=== PATIENT | female | born 1990 | race Hispanic/Latino ===

== ENCOUNTER 2021-09-10 17:03 | Emergency (ER) | payer OTHER ==
[~2021-09-10] VITALS: Ht 147.3 cm; Wt 49.9 kg
[2021-09-10] MEDS ORDERED: 0.9%NACL 1000ML 1,000 ML IV ONE ×3 (17:30→17:37)
[2021-09-10] MEDS ORDERED: FAMOTIDINE 20MG VIAL IV ONE ×2 (17:30→17:37)
[2021-09-10] MEDS ORDERED: ONDANSETRON 4MG INJ IVP ONE (17:30)
[2021-09-10] MEDS ORDERED: ONDANSETRON 4MG INJ ONE (17:37)
[2021-09-10 17:40] LABS: BASOPHILS % (AUTO) 0.6 % (0.0-5.0); EOSINOPHILS % (AUTO) 0.6 % (0.0-8.0); HEMATOCRIT 34.6 % (36-48); MEAN CORPUSCULAR HGB CONC 32.4 g/dL (32.0-36.0); MEAN CORPUSCULAR VOLUME 80.3 fL (79-99); MONOCYTES % (AUTO) 4.3 % (3.0-13.0); NEUTROPHILS % (AUTO) 69.2 % (40.0-77.0); PLATELET COUNT (AUTO) 262 K/uL (130-400); RED BLOOD CELL COUNT(AUTO) 4.31 MIL/uL (4.00-5.50); RED CELL DISTRIBUTION WIDTH 12.6 % (11.0-15.5); WHITE BLOOD COUNT (AUTO) 11.7 K/uL (4.8-10.8)
[2021-09-10 17:42] LABS: APPEARANCE,URINE Cloudy (CLEAR); BILIRUBIN,URINE Negative (NEGATIVE); COLOR,URINE Yellow (YELLOW); GLUCOSE, URINE (UA) >=1000 mg/dL (NEGATIVE); KETONES,URINE >=160 mg/dL (NEGATIVE); LEUKOCYTE ESTERASE ,URINE Trace (NEGATIVE); NITRATE,URINE Negative (NEGATIVE); OCCULT BLOOD,URINE Moderate (NEGATIVE); PH,URINE 5.5 (5.0-8.0); PROTEIN,URINE POS 2+ mg/dL (NEGATIVE)
[2021-09-10 17:44] LABS: HCG,QUAL RESULT NEGATIVE (NEGATIVE)
[2021-09-10 17:48] LABS: BACTERIA,URINE Many /HPF (None Seen); MUCUS,URINE Few LPF (None Seen); SQUAMOUS EPITHELIAL CELL,UR Few /HPF (0-2)
[2021-09-10 17:51] LABS: CREATININE 0.5 mg/dL (0.5-1.5); POTASSIUM 3.4 mmol/L (3.5-5.1)
[2021-09-10 17:56] LABS: ALBUMIN 3.2 g/dL (3.5-5.0); TOTAL PROTEIN, SERUM 8.3 g/dL (6.0-8.3)
[2021-09-10] MEDS ORDERED: CEFTRIAXONE 1G VIAL IV ONE (18:00)
[2021-09-10] MEDS ORDERED: CEFTRIAXONE 1G VIAL ONE (18:14)
[2021-09-10] MEDS ORDERED: ONDA4TAB10 PO (18:18)
[2021-09-10] MEDS ORDERED: CEPH500B PO (18:18)
[2021-09-10 18:40] VITALS: BP 132/84
[2021-09-11] MEDS ORDERED: NAPR220T57 PO (17:42)
== END 2021-09-10 18:42 | disposition home or self-care (01) ==
LOC: EDH 17:03
DX: N39.0 Urinary tract infection, site not specified (principal); E11.9 Type 2 diabetes mellitus without complications; Z79.899 Other long term (current) drug therapy; Z88.0 Allergy status to penicillin
CPT/HCPCS: 36415; 80053; 81001; 81025; 85025; 87077; 87088; 87186; 96361; 96374; 96375; 99284; J0696; J2405; J3490; J7030

== ENCOUNTER 2021-09-11 17:01 | Emergency (ER) | payer OTHER ==
[~2021-09-11] VITALS: Ht 147.3 cm; Wt 49.4 kg
[~2021-09-11 17:01] MED LIST: CEPH500B PO; ONDA4TAB10 PO
[2021-09-11] MEDS ORDERED: NAPR220T57 PO (17:42)
[2021-09-11] MEDS ORDERED: KETOROLAC 30MG VIAL (30MG/ML) ONE (17:47)
[2021-09-11] MEDS ORDERED: DIAZEPAM 5 MG TABLET ONE (17:47)
[2021-09-11 17:54] VITALS: BP 118/68
[2021-09-11] MEDS ORDERED: KETOROLAC 30MG VIAL (30MG/ML) IM ONE (18:00)
[2021-09-11] MEDS ORDERED: DIAZEPAM 5 MG TABLET PO ONE (18:00)
== END 2021-09-11 17:56 | disposition home or self-care (01) ==
LOC: EDH 17:01
DX: G89.29 Other chronic pain (principal); M54.50 Low back pain, unspecified; E11.9 Type 2 diabetes mellitus without complications; Z88.0 Allergy status to penicillin; Z79.1 Long term (current) use of non-steroidal anti-inflammatories (NSAID); Z79.899 Other long term (current) drug therapy
CPT/HCPCS: 96372; 99283; J1885

== ENCOUNTER 2021-09-17 06:50 | Emergency (ER) | payer SELFPAY ==
[~2021-09-17] VITALS: Ht 147.3 cm; Wt 40.4 kg
[~2021-09-17 06:50] MED LIST changes: +NAPR220T57 PO
[2021-09-17] MEDS ORDERED: KETOROLAC 30MG VIAL (30MG/ML) IVP ONE (07:30)
[2021-09-17] MEDS ORDERED: ONDANSETRON 4MG INJ IVP ONE (07:30)
[2021-09-17] MEDS ORDERED: 0.9%NACL 1000ML 1,000 ML IV ONE ×2 (07:30→07:38)
[2021-09-17] MEDS ORDERED: ONDANSETRON 4MG INJ ONE (07:38)
[2021-09-17] MEDS ORDERED: KETOROLAC 30MG VIAL (30MG/ML) ONE (07:38)
[2021-09-17 07:46] LABS: BASOPHILS % (AUTO) 0.6 % (0.0-5.0); EOSINOPHILS % (AUTO) 0.3 % (0.0-8.0); HEMATOCRIT 35.4 % (36-48); LYMPHOCYTES % (AUTO) 20.6 % (21.0-51.0); MEAN CORPUSCULAR HEMOGLOBIN 26.8 pg (27.0-33.0); MEAN CORPUSCULAR HGB CONC 33.9 g/dL (32.0-36.0); MEAN CORPUSCULAR VOLUME 79.2 fL (79-99); MONOCYTES % (AUTO) 4.5 % (3.0-13.0); NEUTROPHILS % (AUTO) 73.7 % (40.0-77.0); PLATELET COUNT (AUTO) 253 K/uL (130-400); RED BLOOD CELL COUNT(AUTO) 4.47 MIL/uL (4.00-5.50); RED CELL DISTRIBUTION WIDTH 12.9 % (11.0-15.5); WHITE BLOOD COUNT (AUTO) 7.8 K/uL (4.8-10.8)
[2021-09-17 08:09] LABS: APPEARANCE,URINE Clear (CLEAR); BILIRUBIN,URINE Negative (NEGATIVE); COLOR,URINE Yellow (YELLOW); GLUCOSE, URINE (UA) >=1000 mg/dL (NEGATIVE); KETONES,URINE >=160 mg/dL (NEGATIVE); LEUKOCYTE ESTERASE ,URINE Small (NEGATIVE); NITRATE,URINE Negative (NEGATIVE); OCCULT BLOOD,URINE Trace (NEGATIVE); PROTEIN,URINE POS 1+ mg/dL (NEGATIVE)
[2021-09-17 08:15] LABS: HCG,QUAL RESULT NEGATIVE (NEGATIVE)
[2021-09-17 08:23] LABS: BACTERIA,URINE Few /HPF (None Seen); RBC,URINE 0-1 /HPF (0-1)
[2021-09-17 09:15] LABS: CREATININE 0.6 mg/dL (0.5-1.5); POTASSIUM 3.1 mmol/L (3.5-5.1)
[2021-09-17 09:20] LABS: ALBUMIN 3.4 g/dL (3.5-5.0); BILIRUBIN,TOTAL 1.1 mg/dL (0.2-1.0); TOTAL PROTEIN, SERUM 8.1 g/dL (6.0-8.3)
[2021-09-17] MEDS ORDERED: POTASSIUM CHLORIDE 10% ELIXIR 20 MEQ/15 ML UDCUP PO SCH (11:00)
[2021-09-17] MEDS ORDERED: ACET-2079 PO (11:29)
[2021-09-17] MEDS ORDERED: KCL 20 MEQ ERTAB PO ONE ×2 (11:30→11:34)
[2021-09-17 11:51] VITALS: BP 141/81
== END 2021-09-17 11:56 | disposition home or self-care (01) ==
LOC: EDH 06:50
DX: K80.70 Calculus of gallbladder and bile duct without cholecystitis without obstruction (principal); E87.6 Hypokalemia; E11.9 Type 2 diabetes mellitus without complications; Z79.1 Long term (current) use of non-steroidal anti-inflammatories (NSAID); Z79.899 Other long term (current) drug therapy; Z88.0 Allergy status to penicillin
CPT/HCPCS: 36415; 74176; 76705; 80053; 81001; 81025; 83605; 83690; 85025; 87040 ×2; 96361; 96374; 96375; 99285; J1885; J2405; J7030

== ENCOUNTER 2022-02-15 07:35 | Emergency (ER) | payer OTHER ==
[~2022-02-15] VITALS: Ht 147.3 cm; Wt 40.8 kg
[~2022-02-15 07:35] MED LIST changes: +ACET-2079 PO
[2022-02-15] MEDS ORDERED: ONDANSETRON 4MG INJ IV ONE (08:00)
[2022-02-15] MEDS ORDERED: 0.9%NACL 1000ML 1,000 ML IV SCH (08:00)
[2022-02-15 08:02] LABS: MEAN CORPUSCULAR HGB CONC 33.5 g/dL (32.0-36.0); MEAN CORPUSCULAR VOLUME 80.4 fL (79-99); RED BLOOD CELL COUNT(AUTO) 4.6 MIL/uL (4.00-5.50); RED CELL DISTRIBUTION WIDTH 13.1 % (11.0-15.5); WHITE BLOOD COUNT (AUTO) 9.7 K/uL (4.8-10.8)
[2022-02-15 08:10] LABS: APPEARANCE,URINE CLEAR (CLEAR); BILIRUBIN,URINE NEGATIVE (NEGATIVE); COLOR,URINE YELLOW (YELLOW); GLUCOSE, URINE (UA) >=1000 mg/dL (NEGATIVE); KETONES,URINE >=80 mg/dL (NEGATIVE); LEUKOCYTE ESTERASE ,URINE NEGATIVE (NEGATIVE); NITRATE,URINE NEGATIVE (NEGATIVE); OCCULT BLOOD,URINE SMALL (NEGATIVE); PROTEIN,URINE 30 mg/dL (NEGATIVE); UROBILINOGEN,URINE 0.2 mg/dL (0.2-1.0)
[2022-02-15 08:24] LABS: CREATININE 1.1 mg/dL (0.5-1.5); POTASSIUM 3.6 mmol/L (3.5-5.1); TOTAL PROTEIN, SERUM 8.8 g/dL (6.0-8.3)
[2022-02-15 08:25] LABS: BACTERIA,URINE Few /HPF (None Seen); RBC,URINE 0-1 /HPF (0-1); SQUAMOUS EPITHELIAL CELL,UR 0-2 /HPF (0-2); WBC,URINE 0-1 /HPF (0-1)
[2022-02-15 08:29] LABS: HCG,QUALITATIVE URINE NEGATIVE (NEGATIVE)
[2022-02-15] MEDS ORDERED: INSULIN HUMULIN R 100 UNIT/ML 3ML IV ONE (09:00)
[2022-02-15] MEDS ORDERED: ESOM40CA PO (09:21)
[2022-02-15] MEDS ORDERED: ONDA4TAB10 PO (09:21)
[2022-02-15] MEDS ORDERED: PROMETHAZINE HCL 25 MG/ML 1ML AMPULE IM ONE (10:00)
[2022-02-15 10:02] VITALS: BP 132/74
[2022-02-16] MEDS ORDERED: ONDA4TAB10 PO (12:14)
[2022-02-16] MEDS ORDERED: IBUP-2070 PO (12:14)
[2022-02-16] MEDS ORDERED: FAMO-136 PO (12:14)
[2022-02-17] MEDS ORDERED: OXYC-38 PO (01:11)
== END 2022-02-15 10:04 | disposition home or self-care (01) ==
LOC: EDH 07:35
DX: E11.65 Type 2 diabetes mellitus with hyperglycemia (principal); K29.00 Acute gastritis without bleeding; Z91.14 Patient's other noncompliance with medication regimen; Z20.822 Contact with and (suspected) exposure to COVID-19; Z88.0 Allergy status to penicillin; Z79.899 Other long term (current) drug therapy; Z98.890 Other specified postprocedural states
CPT/HCPCS: 99284; 96374; 87635; 96361; 96375; 80053; 85027; 82948; 81001; 81025; 36415; 96372; J1815; C9803; J7030; J2550; J2405

== ENCOUNTER 2022-02-16 08:15 | Emergency (ER) | payer OTHER ==
[~2022-02-16] VITALS: Ht 147.3 cm; Wt 40.8 kg
[~2022-02-16 08:15] MED LIST changes: +ESOM40CA PO
[2022-02-16] MEDS ORDERED: ONDANSETRON 4MG INJ ONE (09:16)
[2022-02-16] MEDS ORDERED: HYDROMORPHONE 0.5 MG SYG (0.5MG/0.5ML) ONE (09:17)
[2022-02-16 09:22] LABS: APPEARANCE,URINE CLEAR (CLEAR); BILIRUBIN,URINE NEGATIVE (NEGATIVE); COLOR,URINE YELLOW (YELLOW); GLUCOSE, URINE (UA) 500 mg/dL (NEGATIVE); KETONES,URINE >=80 mg/dL (NEGATIVE); LEUKOCYTE ESTERASE ,URINE NEGATIVE (NEGATIVE); NITRATE,URINE NEGATIVE (NEGATIVE); OCCULT BLOOD,URINE SMALL (NEGATIVE); PROTEIN,URINE TRACE mg/dL (NEGATIVE)
[2022-02-16 09:24] LABS: EOSINOPHILS % (AUTO) 0.6 % (0.0-8.0); HEMATOCRIT 38.9 % (36-48); LYMPHOCYTES % (AUTO) 25.3 % (21.0-51.0); MEAN CORPUSCULAR HEMOGLOBIN 26.8 pg (27.0-33.0); MEAN CORPUSCULAR HGB CONC 32.6 g/dL (32.0-36.0); MEAN CORPUSCULAR VOLUME 82.1 fL (79-99); MONOCYTES % (AUTO) 5.4 % (3.0-13.0); NEUTROPHILS % (AUTO) 67.5 % (40.0-77.0); PLATELET COUNT (AUTO) 229 K/uL (130-400); RED BLOOD CELL COUNT(AUTO) 4.74 MIL/uL (4.00-5.50); RED CELL DISTRIBUTION WIDTH 12.9 % (11.0-15.5); WHITE BLOOD COUNT (AUTO) 8.6 K/uL (4.8-10.8)
[2022-02-16] MEDS ORDERED: LACTATED RINGERS 1000ML 1,000 ML IV ONE (09:30)
[2022-02-16] MEDS ORDERED: ONDANSETRON 4MG INJ IVP ONE (09:30)
[2022-02-16] MEDS ORDERED: HYDROMORPHONE 0.5 MG SYG (0.5MG/0.5ML) IVP ONE (09:30)
[2022-02-16 09:39] LABS: CREATININE 0.8 mg/dL (0.5-1.5); POTASSIUM 3.1 mmol/L (3.5-5.1)
[2022-02-16 09:43] LABS: ALBUMIN 3.8 g/dL (3.5-5.0); TOTAL PROTEIN, SERUM 8.3 g/dL (6.0-8.3)
[2022-02-16 10:11] LABS: BACTERIA,URINE Rare /HPF (None Seen); MUCUS,URINE Few LPF (None Seen); RBC,URINE 0-1 /HPF (0-1); SQUAMOUS EPITHELIAL CELL,UR Rare /HPF (0-2); WBC,URINE 0-1 /HPF (0-1)
[2022-02-16] MEDS ORDERED: KETOROLAC 30MG VIAL (30MG/ML) IVP ONE (10:30)
[2022-02-16] MEDS ORDERED: KCL 20 MEQ ERTAB PO ONE (10:30)
[2022-02-16] MEDS ORDERED: ONDA4TAB10 PO (12:14)
[2022-02-16] MEDS ORDERED: FAMO-136 PO (12:14)
[2022-02-16] MEDS ORDERED: IBUP-2070 PO (12:14)
[2022-02-16 13:01] VITALS: BP 118/78
[2022-02-17] MEDS ORDERED: OXYC-38 PO (01:11)
[2022-02-19] MEDS ORDERED: MACR100 PO (20:08)
== END 2022-02-16 13:12 | disposition home or self-care (01) ==
LOC: EDH 08:15
DX: K80.70 Calculus of gallbladder and bile duct without cholecystitis without obstruction (principal); E11.65 Type 2 diabetes mellitus with hyperglycemia; E87.6 Hypokalemia; I10 Essential (primary) hypertension; F17.200 Nicotine dependence, unspecified, uncomplicated; Z88.0 Allergy status to penicillin; Z79.899 Other long term (current) drug therapy
CPT/HCPCS: 99284; 96374; 76705; 96361; 96375; 82150; 80053; 83690; 85025; 81001; 81025; 36415; J7120; J2405; J1170

== ENCOUNTER 2023-03-14 11:22 | Emergency (ER) | payer BC, OTHER ==
[~2023-03-14] VITALS: Ht 147.3 cm; Wt 40.8 kg
[~2023-03-14 11:22] MED LIST changes: -ACET-2079 PO; -CEPH500B PO; +IBUP-2070 PO; +MACR100 PO; -NAPR220T57 PO; +OXYC-38 PO
[2023-03-14 11:58] LABS: BASOPHILS # (AUTO) 0.06 K/uL (0.00-0.20); BASOPHILS % (AUTO) 0.7 % (0.0-5.0); EOSINOPHILS # (AUTO) 0.06 K/uL (0.00-0.70); EOSINOPHILS % (AUTO) 0.7 % (0.0-8.0); HEMATOCRIT 37.9 % (36-48); IMMATURE GRANULOCYTE ABSOLUTE 0.03 K/uL (0-1); LYMPHOCYTES # (AUTO) 1.4 K/uL (1.0-4.8); MEAN CORPUSCULAR HGB CONC 32.5 g/dL (32.0-36.0); MEAN CORPUSCULAR VOLUME 83.1 fL (79-99); MONOCYTES # (AUTO) 0.5 K/uL (0.1-1.0); MONOCYTES % (AUTO) 4.9 % (3.0-13.0); NEUTROPHILS # (AUTO) 7.3 K/uL (1.8-7.7); NEUTROPHILS % (AUTO) 78.4 % (40.0-77.0); PLATELET COUNT (AUTO) 213 K/uL (130-400); RED BLOOD CELL COUNT(AUTO) 4.56 MIL/uL (4.00-5.50); RED CELL DISTRIBUTION WIDTH 12.9 % (11.0-15.5); WHITE BLOOD COUNT (AUTO) 9.2 K/uL (4.8-10.8)
[2023-03-14 12:06] LABS: HCG,QUALITATIVE URINE NEGATIVE (NEGATIVE)
[2023-03-14 12:08] LABS: CREATININE 0.9 mg/dL (0.5-1.5); POTASSIUM 3.6 mmol/L (3.5-5.1)
[2023-03-14 12:14] LABS: APPEARANCE,URINE CLOUDY (CLEAR); BILIRUBIN,URINE NEGATIVE (NEGATIVE); COLOR,URINE YELLOW (YELLOW); GLUCOSE, URINE (UA) >=1000 mg/dL (NEGATIVE); KETONES,URINE 40 mg/dL (NEGATIVE); LEUKOCYTE ESTERASE ,URINE NEGATIVE Leu/uL (NEGATIVE); NITRATE,URINE NEGATIVE (NEGATIVE); OCCULT BLOOD,URINE LARGE (NEGATIVE); PH,URINE 5.5 (5.0-8.0); PROTEIN,URINE 100 mg/dL (NEGATIVE); UROBILINOGEN,URINE 0.2 mg/dL (0.2-1.0)
[2023-03-14 12:15] LABS: ADD UA MICROSCOPIC YES
[2023-03-14 12:15] LABS: ALBUMIN 3.7 g/dL (3.5-5.0); BILIRUBIN,TOTAL 1.2 mg/dL (0.2-1.0); TOTAL PROTEIN, SERUM 8.2 g/dL (6.0-8.3)
[2023-03-14 12:19] LABS: MUCUS,URINE RARE LPF (None Seen); OTHER CASTS, URINE 1 /LPF (None Seen); RBC,URINE 26-50 /HPF (0-1); SQUAMOUS EPITHELIAL CELL,UR MOD /HPF (0-2)
[2023-03-14] MEDS ORDERED: ONDANSETRON 4MG INJ IVP ONE (13:00)
[2023-03-14] MEDS ORDERED: INSULIN HUMULIN R 100 UNIT/ML 3ML IV ONE (13:00)
[2023-03-14] MEDS ORDERED: LACTATED RINGERS 1000ML 1,000 ML IV ONE (13:00)
[2023-03-14 13:10] LABS: AMPHET/METH SCREEN,URINE NEGATIVE (NEGATIVE); BARBITURATE SCREEN, URINE NEGATIVE (NEGATIVE); BENZODIAZEPINES SCREEN,URINE NEGATIVE (NEGATIVE); CANNABINOID SCREEN,URINE POSITIVE (NEGATIVE); COCAINE SCREEN,URINE NEGATIVE (NEGATIVE); OPIATE SCREEN,URINE NEGATIVE (NEGATIVE); PHENCYCLIDINE SCREEN,URINE NEGATIVE (NEGATIVE)
[2023-03-14] MEDS ORDERED: METO5 PO (14:50)
[2023-03-14 15:02] VITALS: BP 112/77; PULSE 87; RESP 16; O2SAT 98
[2023-03-15] MEDS ORDERED: METO10TA41 PO (16:06)
== END 2023-03-14 15:07 | disposition home or self-care (01) ==
LOC: EDH 11:22
DX: E11.43 Type 2 diabetes mellitus with diabetic autonomic (poly)neuropathy (principal); E11.65 Type 2 diabetes mellitus with hyperglycemia; K31.84 Gastroparesis; F12.10 Cannabis abuse, uncomplicated; R11.2 Nausea with vomiting, unspecified; Z79.899 Other long term (current) drug therapy; Z98.890 Other specified postprocedural states; Z88.0 Allergy status to penicillin
CPT/HCPCS: 99284; 96374; 96361; 96375; 82150; 80053; 80305; 83690; 85025; 82948 ×2; 81025; 36415; 81001; J1815; J7120; J2405

== ENCOUNTER 2023-03-15 11:42 | Emergency (ER) | payer BC ==
[~2023-03-15] VITALS: Ht 147.3 cm; Wt 40.8 kg
[~2023-03-15 11:42] MED LIST changes: +METO5 PO
[2023-03-15 12:59] LABS: BASOPHILS # (AUTO) 0.05 K/uL (0.00-0.20); BASOPHILS % (AUTO) 0.6 % (0.0-5.0); HEMATOCRIT 35.8 % (36-48); IMMATURE GRANULOCYTE ABSOLUTE 0.04 K/uL (0-1); LYMPHOCYTES # (AUTO) 1.6 K/uL (1.0-4.8); LYMPHOCYTES % (AUTO) 19.1 % (21.0-51.0); MEAN CORPUSCULAR HGB CONC 33.2 g/dL (32.0-36.0); MEAN CORPUSCULAR VOLUME 81.2 fL (79-99); MONOCYTES # (AUTO) 0.6 K/uL (0.1-1.0); MONOCYTES % (AUTO) 7.1 % (3.0-13.0); NEUTROPHILS # (AUTO) 6.2 K/uL (1.8-7.7); NEUTROPHILS % (AUTO) 72.7 % (40.0-77.0); PLATELET COUNT (AUTO) 225 K/uL (130-400); RED BLOOD CELL COUNT(AUTO) 4.41 MIL/uL (4.00-5.50); RED CELL DISTRIBUTION WIDTH 13.1 % (11.0-15.5); WHITE BLOOD COUNT (AUTO) 8.5 K/uL (4.8-10.8)
[2023-03-15] MEDS ORDERED: ONDANSETRON 4MG TABLET PO ONE (13:00)
[2023-03-15] MEDS ORDERED: LIDOCAINE HCL 2% VISCOUS 15 ML UDCUP PO ONE (13:00)
[2023-03-15] MEDS ORDERED: DICYCLOMINE HCL 10 MG/5 ML ML PO ONE (13:00)
[2023-03-15] MEDS ORDERED: FAMOTIDINE 20MG TAB PO ONE (13:00)
[2023-03-15] MEDS ORDERED: MAG/ALUM/SIMETH 30 ML UDCUP PO ONE (13:00)
[2023-03-15 13:15] LABS: ADD UA MICROSCOPIC YES; APPEARANCE,URINE CLEAR (CLEAR); BILIRUBIN,URINE NEGATIVE (NEGATIVE); COLOR,URINE LIGHT-YELLOW (YELLOW); GLUCOSE, URINE (UA) >=1000 mg/dL (NEGATIVE); KETONES,URINE 100 mg/dL (NEGATIVE); LEUKOCYTE ESTERASE ,URINE NEGATIVE Leu/uL (NEGATIVE); NITRATE,URINE NEGATIVE (NEGATIVE); OCCULT BLOOD,URINE SMALL (NEGATIVE); PH,URINE 5.5 (5.0-8.0); PROTEIN,URINE 70 mg/dL (NEGATIVE); UROBILINOGEN,URINE 0.2 mg/dL (0.2-1.0)
[2023-03-15 13:17] LABS: SQUAMOUS EPITHELIAL CELL,UR FEW /HPF (0-2); YEAST,URINE BUDDING RARE /HPF (None Seen)
[2023-03-15 13:18] LABS: ALBUMIN 3.8 g/dL (3.5-5.0); BILIRUBIN,TOTAL 1.1 mg/dL (0.2-1.0); CREATININE 1.1 mg/dL (0.5-1.5); POTASSIUM 3.5 mmol/L (3.5-5.1); TOTAL PROTEIN, SERUM 8.4 g/dL (6.0-8.3)
[2023-03-15 13:23] LABS: HCG,QUALITATIVE URINE NEGATIVE (NEGATIVE)
[2023-03-15] MEDS ORDERED: INSULIN HUMULIN R 100 UNIT/ML 3ML SQ ONE (14:30)
[2023-03-15 15:10] VITALS: BP 125/72; PULSE 100; RESP 18; O2SAT 100
[2023-03-15] MEDS ORDERED: METO10TA41 PO (16:06)
== END 2023-03-15 16:13 | disposition home or self-care (01) ==
LOC: EDH 11:42
DX: K80.70 Calculus of gallbladder and bile duct without cholecystitis without obstruction (principal); F12.10 Cannabis abuse, uncomplicated; R11.2 Nausea with vomiting, unspecified; E11.9 Type 2 diabetes mellitus without complications; Z79.899 Other long term (current) drug therapy; Z98.890 Other specified postprocedural states; Z88.0 Allergy status to penicillin
CPT/HCPCS: 99284; 76705; 80053; 83690; 85025; 81001; 81025; 36415; 96372; J1815; Q0162

== ENCOUNTER 2023-03-16 02:46 | Emergency (ER) | payer BC ==
[~2023-03-16] VITALS: Ht 147.3 cm; Wt 41.3 kg
[~2023-03-16 02:46] MED LIST changes: +METO10TA41 PO
[2023-03-16 03:11] LABS: ADD UA MICROSCOPIC YES; APPEARANCE,URINE CLEAR (CLEAR); BILIRUBIN,URINE NEGATIVE (NEGATIVE); COLOR,URINE LIGHT-YELLOW (YELLOW); GLUCOSE, URINE (UA) >=1000 mg/dL (NEGATIVE); KETONES,URINE 20 mg/dL (NEGATIVE); LEUKOCYTE ESTERASE ,URINE NEGATIVE Leu/uL (NEGATIVE); NITRATE,URINE NEGATIVE (NEGATIVE); OCCULT BLOOD,URINE SMALL (NEGATIVE); PROTEIN,URINE 100 mg/dL (NEGATIVE); UROBILINOGEN,URINE 0.2 mg/dL (0.2-1.0)
[2023-03-16 03:12] LABS: MUCUS,URINE RARE LPF (None Seen); SQUAMOUS EPITHELIAL CELL,UR FEW /HPF (0-2)
[2023-03-16 03:13] LABS: HCG,QUALITATIVE URINE NEGATIVE (NEGATIVE)
[2023-03-16 03:15] LABS: BASOPHILS # (AUTO) 0.08 K/uL (0.00-0.20); BASOPHILS % (AUTO) 0.8 % (0.0-5.0); EOSINOPHILS # (AUTO) 0.03 K/uL (0.00-0.70); EOSINOPHILS % (AUTO) 0.3 % (0.0-8.0); HEMATOCRIT 36.8 % (36-48); IMMATURE GRANULOCYTE ABSOLUTE 0.03 K/uL (0-1); LYMPHOCYTES # (AUTO) 2.7 K/uL (1.0-4.8); LYMPHOCYTES % (AUTO) 26.8 % (21.0-51.0); MEAN CORPUSCULAR HEMOGLOBIN 27.4 pg (27.0-33.0); MEAN CORPUSCULAR VOLUME 80.7 fL (79-99); MONOCYTES # (AUTO) 0.6 K/uL (0.1-1.0); MONOCYTES % (AUTO) 5.9 % (3.0-13.0); NEUTROPHILS # (AUTO) 6.5 K/uL (1.8-7.7); NEUTROPHILS % (AUTO) 65.9 % (40.0-77.0); PLATELET COUNT (AUTO) 242 K/uL (130-400); RED BLOOD CELL COUNT(AUTO) 4.56 MIL/uL (4.00-5.50); RED CELL DISTRIBUTION WIDTH 12.8 % (11.0-15.5); WHITE BLOOD COUNT (AUTO) 9.9 K/uL (4.8-10.8)
[2023-03-16 03:24] LABS: CREATININE 1.1 mg/dL (0.5-1.5)
[2023-03-16 03:28] LABS: ALBUMIN 3.9 g/dL (3.5-5.0); BILIRUBIN,TOTAL 1.4 mg/dL (0.2-1.0); TOTAL PROTEIN, SERUM 8.4 g/dL (6.0-8.3)
[2023-03-16] MEDS ORDERED: 0.9%NACL 1000ML 1,000 ML IV ONE (03:30)
[2023-03-16] MEDS ORDERED: METOCLOPRAMIDE 10 MG/2 ML VIAL IVP ONE (03:30)
[2023-03-16] MEDS ORDERED: FAMOTIDINE 20MG VIAL IV ONE (03:30)
[2023-03-16 04:25] VITALS: BP 119/76; PULSE 80; RESP 18; O2SAT 98
== END 2023-03-16 04:27 | disposition home or self-care (01) ==
LOC: EDH 02:46
DX: F12.10 Cannabis abuse, uncomplicated (principal); E11.9 Type 2 diabetes mellitus without complications; Z88.0 Allergy status to penicillin
CPT/HCPCS: 99284; 96374; 96361; 96375; 80053; 83690; 85025; 81001; 81025; 36415; J3490; J7030; J2765

== ENCOUNTER 2023-03-22 15:07 | Emergency (ER) | payer BC ==
[~2023-03-22] VITALS: Ht 147.3 cm; Wt 40.8 kg
[2023-03-22 15:11] VITALS: RESP 20
[2023-03-22 15:40] LABS: BASOPHILS # (AUTO) 0.05 K/uL (0.00-0.20); BASOPHILS % (AUTO) 0.6 % (0.0-5.0); EOSINOPHILS # (AUTO) 0.11 K/uL (0.00-0.70); EOSINOPHILS % (AUTO) 1.2 % (0.0-8.0); HEMATOCRIT 36.9 % (36-48); IMMATURE GRANULOCYTE ABSOLUTE 0.04 K/uL (0-1); LYMPHOCYTES # (AUTO) 2.2 K/uL (1.0-4.8); LYMPHOCYTES % (AUTO) 24.5 % (21.0-51.0); MEAN CORPUSCULAR HEMOGLOBIN 26.6 pg (27.0-33.0); MEAN CORPUSCULAR HGB CONC 32.5 g/dL (32.0-36.0); MEAN CORPUSCULAR VOLUME 81.8 fL (79-99); MONOCYTES # (AUTO) 0.5 K/uL (0.1-1.0); NEUTROPHILS # (AUTO) 6.1 K/uL (1.8-7.7); NEUTROPHILS % (AUTO) 67.3 % (40.0-77.0); PLATELET COUNT (AUTO) 261 K/uL (130-400); RED BLOOD CELL COUNT(AUTO) 4.51 MIL/uL (4.00-5.50); RED CELL DISTRIBUTION WIDTH 12.7 % (11.0-15.5); WHITE BLOOD COUNT (AUTO) 9.1 K/uL (4.8-10.8)
[2023-03-22] MEDS ORDERED: ONDANSETRON 4MG INJ IVP ONE (16:00)
[2023-03-22] MEDS ORDERED: KETOROLAC 30MG VIAL (30MG/ML) IVP ONE (16:00)
[2023-03-22] MEDS ORDERED: 0.9%NACL 1000ML 1,000 ML IV ONE ×2 (16:00→17:00)
[2023-03-22 16:01] LABS: APPEARANCE,URINE CLEAR (CLEAR); BILIRUBIN,URINE NEGATIVE (NEGATIVE); GLUCOSE, URINE (UA) 300 mg/dL (NEGATIVE); KETONES,URINE 60 mg/dL (NEGATIVE); LEUKOCYTE ESTERASE ,URINE NEGATIVE Leu/uL (NEGATIVE); NITRATE,URINE NEGATIVE (NEGATIVE); OCCULT BLOOD,URINE MODERATE (NEGATIVE); PROTEIN,URINE 50 mg/dL (NEGATIVE); UROBILINOGEN,URINE 0.2 mg/dL (0.2-1.0)
[2023-03-22 16:02] LABS: ADD UA MICROSCOPIC YES; COLOR,URINE YELLOW (YELLOW)
[2023-03-22 16:04] LABS: CREATININE 0.9 mg/dL (0.5-1.5); POTASSIUM 3.4 mmol/L (3.5-5.1)
[2023-03-22 16:07] LABS: BACTERIA,URINE RARE /HPF (None Seen); MUCUS,URINE RARE LPF (None Seen); SQUAMOUS EPITHELIAL CELL,UR FEW /HPF (0-2); WBC,URINE 0-1 /HPF (0-1)
[2023-03-22 16:11] LABS: ALBUMIN 3.8 g/dL (3.5-5.0); BILIRUBIN,TOTAL 1.2 mg/dL (0.2-1.0); TOTAL PROTEIN, SERUM 8.1 g/dL (6.0-8.3)
[2023-03-22 16:13] LABS: HCG,QUALITATIVE URINE NEGATIVE (NEGATIVE)
[2023-03-22 16:17] LABS: AMPHET/METH SCREEN,URINE NEGATIVE (NEGATIVE); BARBITURATE SCREEN, URINE NEGATIVE (NEGATIVE); BENZODIAZEPINES SCREEN,URINE NEGATIVE (NEGATIVE); CANNABINOID SCREEN,URINE POSITIVE (NEGATIVE); COCAINE SCREEN,URINE NEGATIVE (NEGATIVE); OPIATE SCREEN,URINE NEGATIVE (NEGATIVE); PHENCYCLIDINE SCREEN,URINE NEGATIVE (NEGATIVE)
[2023-03-22] MEDS ORDERED: METOCLOPRAMIDE 10 MG/2 ML VIAL IVP ONE (17:00)
[2023-03-22] MEDS ORDERED: KETOROLAC 60 MG VIAL (30MG/ML) IM ONE (18:41)
[2023-03-22 18:48] VITALS: BP 156/97; PULSE 84; O2SAT 99
== END 2023-03-22 20:01 | disposition left against medical advice (07) ==
LOC: EDH 15:07
DX: K31.84 Gastroparesis (principal); E11.43 Type 2 diabetes mellitus with diabetic autonomic (poly)neuropathy; F12.10 Cannabis abuse, uncomplicated; F41.9 Anxiety disorder, unspecified; Z79.899 Other long term (current) drug therapy; Z98.890 Other specified postprocedural states; Z88.0 Allergy status to penicillin
CPT/HCPCS: 99284; 96374; 96375; 80053; 80305; 85025; 82948; 82010; 81025; 36415; 81001; J7030; J1885; J2765

== ENCOUNTER 2024-03-14 11:48 | Inpatient (IN) | payer BC ==
[~2024-03-14] VITALS: Ht 147.3 cm; Wt 40.8 kg
[~2024-03-14 11:48] MED LIST changes: +ONDA-243 PO; -ONDA4TAB10 PO
[2024-03-14 12:16] LABS: BASOPHILS # (AUTO) 0.06 K/uL (0.00-0.20); BASOPHILS % (AUTO) 0.5 % (0.0-5.0); EOSINOPHILS # (AUTO) 0.05 K/uL (0.00-0.70); EOSINOPHILS % (AUTO) 0.4 % (0.0-8.0); HEMATOCRIT 37.9 % (36-48); IMMATURE GRANULOCYTE ABSOLUTE 0.05 K/uL (0-1); LYMPHOCYTES # (AUTO) 1.7 K/uL (1.0-4.8); LYMPHOCYTES % (AUTO) 14.7 % (21.0-51.0); MEAN CORPUSCULAR HEMOGLOBIN 27.9 pg (27.0-33.0); MEAN CORPUSCULAR HGB CONC 33.8 g/dL (32.0-36.0); MEAN CORPUSCULAR VOLUME 82.6 fL (79-99); MONOCYTES # (AUTO) 0.3 K/uL (0.1-1.0); NEUTROPHILS # (AUTO) 9.3 K/uL (1.8-7.7); PLATELET COUNT (AUTO) 215 K/uL (130-400); RED BLOOD CELL COUNT(AUTO) 4.59 MIL/uL (4.00-5.50); RED CELL DISTRIBUTION WIDTH 12.8 % (11.0-15.5); WHITE BLOOD COUNT (AUTO) 11.5 K/uL (4.8-10.8)
[2024-03-14] MEDS: 0.9%NACL 1000ML 1,000 ML IV ONE ×2 (12:26→14:23)
[2024-03-14] MEDS: ondanSETRON 4MG INJ IVP ONE ×2 (12:27→16:47)
[2024-03-14] MEDS: FAMOTIDINE 20MG VIAL IV ONE (12:27)
[2024-03-14 12:40] LABS: ALBUMIN 3.6 g/dL (3.5-5.0); BILIRUBIN,TOTAL 0.8 mg/dL (0.2-1.0); CREATININE 0.8 mg/dL (0.5-1.0); POTASSIUM 4.8 mmol/L (3.5-5.1); TOTAL PROTEIN, SERUM 8.3 g/dL (6.0-8.3)
[2024-03-14] MEDS: INSULIN humuLIN R 100 UNIT/ML 3ML IV ONE (13:00)
[2024-03-14 14:50] LABS: AMPHET/METH SCREEN,URINE NEGATIVE (NEGATIVE); BARBITURATE SCREEN, URINE NEGATIVE (NEGATIVE); BENZODIAZEPINES SCREEN,URINE NEGATIVE (NEGATIVE); CANNABINOID SCREEN,URINE POSITIVE (NEGATIVE); COCAINE SCREEN,URINE NEGATIVE (NEGATIVE); OPIATE SCREEN,URINE NEGATIVE (NEGATIVE); PHENCYCLIDINE SCREEN,URINE NEGATIVE (NEGATIVE)
[2024-03-14 16:46] LABS: APPEARANCE,URINE CLEAR (CLEAR); BILIRUBIN,URINE NEGATIVE (NEGATIVE); COLOR,URINE COLORLESS (YELLOW); GLUCOSE, URINE (UA) >=1000 mg/dL (NEGATIVE); KETONES,URINE 60 mg/dL (NEGATIVE); LEUKOCYTE ESTERASE ,URINE NEGATIVE Leu/uL (NEGATIVE); NITRATE,URINE NEGATIVE (NEGATIVE); OCCULT BLOOD,URINE SMALL (NEGATIVE); PROTEIN,URINE 50 mg/dL (NEGATIVE); UROBILINOGEN,URINE 0.2 mg/dL (0.2-1.0)
[2024-03-14 16:47] LABS: ADD UA MICROSCOPIC YES
[2024-03-14 17:05] LABS: SQUAMOUS EPITHELIAL CELL,UR RARE /HPF (0-2)
[2024-03-14] MEDS ORDERED: guaiFENesin-DM 200/20MG 10ML PO PRN (17:30)
[2024-03-14] MEDS ORDERED: ketOROlac 15MG/ML VIAL (15MG/ML) IV PRN (17:30)
[2024-03-14] MEDS ORDERED: LACTULOSE 20 GM/30 ML UDCUP PO PRN (17:30)
[2024-03-14] MEDS ORDERED: hydrALAZine 20MG/ML VIAL IV PRN (17:30)
[2024-03-14] MEDS ORDERED: acetaMINOPHEN 325 MG TAB PO PRN ×2 (17:30)
[2024-03-14] MEDS ORDERED: MAGNESIUM 2GM PREMIX 50ML 50 ML IV PRN (18:00)
[2024-03-14] MEDS ORDERED: DEXTROSE 50%-WATER 50 ML DISP.SYRIN IV PRN (18:00)
[2024-03-14] MEDS ORDERED: GLUCAGON 1MG KIT 1 MG ML IM PRN (18:00)
[2024-03-14] MEDS: 0.9%NACL 1000ML 1,000 ML IV SCH (18:06)
[2024-03-14 18:09] LABS: CREATININE 0.7 mg/dL (0.5-1.0); POTASSIUM 3.8 mmol/L (3.5-5.1)
[2024-03-14 18:24] LABS: MAGNESIUM 1.8 mg/dL (1.80-2.40); THYROID STIMULATING HORMONE 0.7 uIU/mL (0.36-3.74)
[2024-03-14 19:50] VITALS: O2SAT 100
[2024-03-14] MEDS: morPHINE 2 MG SYG IVP PRN (20:02)
[2024-03-14 20:15] VITALS: BP 152/82; PULSE 96; RESP 16; TEMP 98.1
[2024-03-14] MEDS: FAMOTIDINE 20MG VIAL IV SCH (21:34)
[2024-03-14] MEDS: INSULIN GLARgine 100 UNITS/ML 10 ML VIAL SQ SCH (21:41)
[2024-03-14] MEDS: INSULIN humuLIN R 100 UNIT/ML 3ML SQ SCH (21:43)
[2024-03-14 23:19] VITALS: BP 152/86; PULSE 109; RESP 16; TEMP 98.4
[2024-03-15 03:50] VITALS: BP 148/82; PULSE 100; RESP 16; TEMP 98
[2024-03-15 06:01] LABS: BASOPHILS # (AUTO) 0.04 K/uL (0.00-0.20); BASOPHILS % (AUTO) 0.3 % (0.0-5.0); EOSINOPHILS # (AUTO) 0.01 K/uL (0.00-0.70); EOSINOPHILS % (AUTO) 0.1 % (0.0-8.0); HEMATOCRIT 35.5 % (36-48); IMMATURE GRANULOCYTE ABSOLUTE 0.05 K/uL (0-1); LYMPHOCYTES # (AUTO) 2.2 K/uL (1.0-4.8); LYMPHOCYTES % (AUTO) 18.1 % (21.0-51.0); MEAN CORPUSCULAR HEMOGLOBIN 27.1 pg (27.0-33.0); MEAN CORPUSCULAR HGB CONC 32.4 g/dL (32.0-36.0); MEAN CORPUSCULAR VOLUME 83.7 fL (79-99); MONOCYTES # (AUTO) 0.5 K/uL (0.1-1.0); MONOCYTES % (AUTO) 4.3 % (3.0-13.0); NEUTROPHILS # (AUTO) 9.4 K/uL (1.8-7.7); NEUTROPHILS % (AUTO) 76.8 % (40.0-77.0); PLATELET COUNT (AUTO) 213 K/uL (130-400); RED BLOOD CELL COUNT(AUTO) 4.24 MIL/uL (4.00-5.50); RED CELL DISTRIBUTION WIDTH 13.2 % (11.0-15.5); WHITE BLOOD COUNT (AUTO) 12.2 K/uL (4.8-10.8)
[2024-03-15 06:15] LABS: CREATININE 0.6 mg/dL (0.5-1.0); MAGNESIUM 1.7 mg/dL (1.80-2.40); POTASSIUM 3.6 mmol/L (3.5-5.1)
[2024-03-15] MEDS: PoTASSium chloRIDE 20MEQ/100ML 100 ML IV PRN (06:36)
[2024-03-15] MEDS: ondanSETRON 4MG INJ IV PRN (07:11)
[2024-03-15 07:52] VITALS: BP 142/83; PULSE 104; RESP 18; TEMP 98.4
[2024-03-15] MEDS ORDERED: amLODIPine 5 MG TAB PO SCH (09:00)
[2024-03-15] MEDS ORDERED: MAGNESIUM 2GM PREMIX 50ML 50 ML IV SCH (09:00)
[2024-03-15] MEDS ORDERED: ENOXAPARIN SODIUM 40 MG/0.4 ML SYRINGE SQ SCH (09:00)
[2024-03-15] MEDS ORDERED: PoTASSium chloRIDE 20MEQ ER 20 MEQ ERTAB PO ONE (09:00)
[2024-03-16] MEDS ORDERED: MACR100 PO (13:18)
[2024-03-16] MEDS ORDERED: ONDA-243 PO (13:18)
[2024-03-16] MEDS ORDERED: FAMO-136 PO (13:18)
== END 2024-03-15 08:53 | disposition left against medical advice (07) | DRG 440 ==
LOC: EDH 11:48 → EDHIP 17:20 → 3CH 20:15
PROVIDERS: ADMIT Internal Medicine; ATTEND Internal Medicine
DX: K85.90 Acute pancreatitis without necrosis or infection, unspecified (principal); F12.90 Cannabis use, unspecified, uncomplicated; E10.65 Type 1 diabetes mellitus with hyperglycemia; I10 Essential (primary) hypertension; K80.20 Calculus of gallbladder without cholecystitis without obstruction; Z53.29 Procedure and treatment not carried out because of patient's decision for other reasons; E10.42 Type 1 diabetes mellitus with diabetic polyneuropathy; Z98.891 History of uterine scar from previous surgery; Z79.4 Long term (current) use of insulin; Z82.49 Family history of ischemic heart disease and other diseases of the circulatory system
CPT/HCPCS: 36415; 76705; 80048; 80053; 80061; 80305; 81001; 82010; 82948; 83036; 83690; 83735; 84443; 84478; 84681; 84703; 85025; 86341; 96374; 96375; G0378; J1815; J2270; J2405; J3480; J3490; J7030

== ENCOUNTER 2024-03-16 10:23 | Emergency (ER) | payer BC ==
[~2024-03-16] VITALS: Ht 147.3 cm; Wt 40.8 kg
[2024-03-16 10:43] LABS: BASOPHILS # (AUTO) 0.08 K/uL (0.00-0.20); BASOPHILS % (AUTO) 0.6 % (0.0-5.0); EOSINOPHILS # (AUTO) 0.02 K/uL (0.00-0.70); EOSINOPHILS % (AUTO) 0.2 % (0.0-8.0); IMMATURE GRANULOCYTE ABSOLUTE 0.04 K/uL (0-1); LYMPHOCYTES # (AUTO) 1.9 K/uL (1.0-4.8); LYMPHOCYTES % (AUTO) 15.6 % (21.0-51.0); MEAN CORPUSCULAR HEMOGLOBIN 27.8 pg (27.0-33.0); MEAN CORPUSCULAR HGB CONC 33.3 g/dL (32.0-36.0); MEAN CORPUSCULAR VOLUME 83.3 fL (79-99); MONOCYTES # (AUTO) 0.5 K/uL (0.1-1.0); MONOCYTES % (AUTO) 3.9 % (3.0-13.0); NEUTROPHILS # (AUTO) 9.9 K/uL (1.8-7.7); NEUTROPHILS % (AUTO) 79.4 % (40.0-77.0); PLATELET COUNT (AUTO) 227 K/uL (130-400); RED BLOOD CELL COUNT(AUTO) 4.68 MIL/uL (4.00-5.50); RED CELL DISTRIBUTION WIDTH 12.9 % (11.0-15.5); WHITE BLOOD COUNT (AUTO) 12.4 K/uL (4.8-10.8)
[2024-03-16 10:57] LABS: INR 0.99 (0.85-1.15); PROTHROMBIN TIME 10.7 SEC (9.6-11.6)
[2024-03-16] MEDS: FAMOTIDINE 20MG VIAL IV ONE (10:57)
[2024-03-16] MEDS: ondanSETRON 4MG INJ IVP ONE ×2 (10:57→14:08)
[2024-03-16 10:59] LABS: PARTIAL THROMBOPLASTIN TIME 25.1 SEC (26.3-35.5)
[2024-03-16 11:00] LABS: CREATININE 0.8 mg/dL (0.5-1.0); POTASSIUM 3.5 mmol/L (3.5-5.1)
[2024-03-16 11:11] LABS: ALBUMIN 3.2 g/dL (3.5-5.0); BILIRUBIN,DIRECT 0.3 mg/dL (0.0-0.3); BILIRUBIN,TOTAL 1.4 mg/dL (0.2-1.0); TOTAL PROTEIN, SERUM 7.6 g/dL (6.0-8.3)
[2024-03-16 11:30] LABS: HCG,QUALITATIVE URINE NEGATIVE (NEGATIVE)
[2024-03-16 11:33] LABS: APPEARANCE,URINE CLEAR (CLEAR); BACTERIA,URINE RARE /HPF (None Seen); BILIRUBIN,URINE NEGATIVE (NEGATIVE); COLOR,URINE LIGHT-YELLOW (YELLOW); GLUCOSE, URINE (UA) >=1000 mg/dL (NEGATIVE); KETONES,URINE 150 mg/dL (NEGATIVE); LEUKOCYTE ESTERASE ,URINE 250 Leu/uL (NEGATIVE); MUCUS,URINE RARE LPF (None Seen); NITRATE,URINE NEGATIVE (NEGATIVE); OCCULT BLOOD,URINE SMALL (NEGATIVE); PROTEIN,URINE 100 mg/dL (NEGATIVE); SQUAMOUS EPITHELIAL CELL,UR MOD /HPF (0-2); UROBILINOGEN,URINE 0.2 mg/dL (0.2-1.0)
[2024-03-16] MEDS ORDERED: MACR100 PO (13:18)
[2024-03-16] MEDS ORDERED: ONDA-243 PO (13:18)
[2024-03-16] MEDS ORDERED: FAMO-136 PO (13:18)
--- NOTE | 2024-03-16 13:21 | ERN ---
General Chief Complaint: Abdominal Pain Stated Complaint: ABDOMINAL PAIN Time Seen by : 10:31 Time Seen by Midlevel: 10:31 Source: patient History of Present Illness Initial Comments Patient is a 33-year-old female with a past medical history of uncontrolled diabetes presenting for evaluation of midepigastric abdominal pain. Patient was seen in our emergency department for similar symptoms three days ago where she was found to have an elevated lipase and elevated blood sugar level. At that time she was admitted however she decided to sign out against medical advice the next day stating she had no one to take care of her son. Today she returns with same complaints. She does admit to marijuana use four days ago. Allergies: Coded Allergies: Penicillins (Unverified Allergy, Unknown, 09/11/21) Home Meds Active Scripts Metoclopramide HCl (Reglan 10 mg Tab) 10 Mg Tablet, 10 MG PO TIDP PRN for NAUSEA/VOMITING, #21 TAB Prov:DONNA FORD TRAUMA COUNSELLOR 03/15/23 Metoclopramide HCl (Reglan) 5 Mg Tab, 5 MG PO Q6HPRN PRN for NAUSEA/VOMITING, #20 TAB Prov:PATRICIA GANN MD 03/14/23 Nitrofurantoin/Nitrofuran Mac (Macrobid) 100 Mg Cap, 1 CAP PO BID for 10 Days, # 20 CAP 0 Refills Prov:NAN DAVIS MD 02/19/22 Oxycodone HCl/Acetaminophen (Percocet 5-325 mg Tablet) 1 Each Tablet, 1 EACH PO Q6H for pain, #16 TAB 0 Refills Prov:NAN DAVIS MD 02/17/22 Ibuprofen (Ibuprofen) 600 Mg Tablet, 600 MG PO Q6H PRN for PAIN, #30 TAB 0 Refills Prov:KRISTIN SINGH MD 02/16/22 Ondansetron (Ondansetron Odt) 4 Mg Tab.rapdis, 4 MG PO Q6HPRN PRN for nausea, #16 TAB 0 Refills Prov:NAN DAVIS MD 02/15/22 Esomeprazole Magnesium (Nexium) 40 Mg Capsule.dr, 40 MG PO DAILY for 10 Days, #10 CAP 0 Refills Prov:NAN DAVIS MD 02/15/22 Past Medical History Past Medical History: Diabetes-Type II Medical History Other: NOT TAKING ANY MEDS FOR DIABETES, GALLSTONES Past Surgical History: None Family History Family History: Negative Social History Social History: Drugs, Lives with family, Other Female( History) : 2 Para: 2 Aborts: 0 ROS Dictation CONSTITUTIONAL: Negative except for HPI HEAD/FACE: Negative except for HPI EENT: Negative except for HPI RESPIRATORY: Negative except for HPI GASTROINTESTINAL/ABDOMINAL: Negative except for HPI GENITOURINARY: Negative except for HPI MUSCULOSKELETAL: Negative except for HPI INTEGUMENTARY: Negative except for HPI NEUROLOGICAL/PSYCH: Negative except for HPI HEMATOLOGIC/LYMPHATIC: Negative except for HPI All Systems Negative, Except as noted above. 13 point review of systems assessed and all negative except for above. Results Laboratory and Microbiology Lab and Micro Result Laboratory Tests Test 03/16/24 10:37 03/16/24 11:05 White Blood Count 12.4 K/uL (4.8-10.8) H Red Blood Count 4.68 MIL/uL (4.00-5.50) Hemoglobin 13.0 g/dL (12.0-16.0) Hematocrit 39.0 % (36-48) Mean Corpuscular Volume 83.3 fL (79-99) Mean Corpuscular Hemoglobin 27.8 pg (27.0-33.0) Mean Corpuscular Hemoglobin Concent 33.3 g/dL (32.0-36.0) Red Cell Distribution Width 12.9 % (11.0-15.5) Platelet Count 227 K/uL (130-400) Mean Platelet Volume 10.0 fL (7.5-10.5) Immature Granulocyte % (Auto) 0.3 % (0-1) Neutrophils (%) (Auto) 79.4 % (40.0-77.0) H Lymphocytes (%) (Auto) 15.6 % (21.0-51.0) L Monocytes (%) (Auto) 3.9 % (3.0-13.0) Eosinophils (%) (Auto) 0.2 % (0.0-8.0) Basophils (%) (Auto) 0.6 % (0.0-5.0) Neutrophils # (Auto) 9.9 K/uL (1.8-7.7) H Lymphocytes # (Auto) 1.9 K/uL (1.0-4.8) Monocytes # (Auto) 0.5 K/uL (0.1-1.0) Eosinophils # (Auto) 0.02 K/uL (0.00-0.70) Basophils # (Auto) 0.08 K/uL (0.00-0.20) Absolute Immature Granulocyte (auto 0.04 K/uL (0-1) Nucleated Red Blood Cells 0.0 % (0.0-0.19) Prothrombin Time 10.7 SEC (9.6-11.6) Prothromb Time International Ratio 0.99 (0.85-1.15) Activated Partial Thromboplast Time 25.1 SEC (26.3-35.5) L Sodium Level 133 mmol/L (136-145) L Potassium Level 3.5 mmol/L (3.5-5.1) Chloride Level 98 mmol/L (101-111) L Carbon Dioxide Level 23 mmol/L (21-32) Blood Urea Nitrogen 7 mg/dL (7-18) Creatinine 0.8 mg/dL (0.5-1.0) Glomerular Filtration Rate Calc 100 mL/min (>90) Random Glucose 281 mg/dL (70-105) H Lactic Acid Level 1.9 mmol/L (0.8-2.5) Total Calcium 9.1 mg/dL (8.5-10.1) Total Bilirubin 1.4 mg/dL (0.2-1.0) H Direct Bilirubin 0.3 mg/dL (0.0-0.3) Aspartate Amino Transf (AST/SGOT) 32 U/L (10-37) Alanine Aminotransferase (ALT/SGPT) 27 U/L (12-78) Alkaline Phosphatase 99 U/L (50-136) Total Protein 7.6 g/dL (6.0-8.3) Albumin 3.2 g/dL (3.5-5.0) L Lipase 65 U/L (16-77) Procalcitonin < 0.05 ng/mL (0.05-0.5) L Human Chorionic Gonadotropin, Quant 0 mIU/mL (0-5) Urine Color LIGHT-YELLOW (YELLOW) Urine Appearance CLEAR (CLEAR) Urine pH 6.0 (5.0-8.0) Urine Specific [place] 1.022 (1.001-1.031) Urine Protein 100 mg/dL (NEGATIVE) H Urine Glucose (UA) >=1000 mg/dL (NEGATIVE) H Urine Ketones 150 mg/dL (NEGATIVE) H Urine Occult Blood SMALL (NEGATIVE) H Urine Nitrate NEGATIVE (NEGATIVE) Urine Bilirubin NEGATIVE mg/dL (NEGATIVE) Urine Urobilinogen 0.2 mg/dL (0.2-1.0) Urine Leukocyte Esterase 250 [place]/uL (NEGATIVE) H Urine RBC 11-25 /HPF (0-1) H Urine WBC 6-10 /HPF (0-1) H Urine Squamous Epithelial Cells MOD /HPF (0-2) Urine Bacteria RARE /HPF (None Seen) Urine HCG, Qualitative NEGATIVE (NEGATIVE) Labs Reviewed?: Yes MDM MDM: Patient is a 33-year-old female with a past medical history of uncontrolled diabetes presenting for evaluation of midepigastric abdominal pain. Patient was seen in our emergency department for similar symptoms three days ago where she was found to have an elevated lipase and elevated blood sugar level. At that time she was admitted however she decided to sign out against medical advice the next day stating she had no one to take care of her son. Today she returns with same complaints. She does admit to marijuana use four days ago. On physical examination patient is in no acute distress. She has mild midepigastric abdominal tenderness but no rebound or guarding. Her vital signs are stable. Her CBC shows a slight leukocytosis with left shift. Her chemistries are stable her sugar slightly elevated over 200. Her lipase is normal. Patient does not have pancreatitis at this time. Patient is not in DKA she has a normal anion gap and normal bicarb. Patient was given 1 L of IV fluids. Her urine is consistent with infection. She will be discharged home with a prescription for Macrobid. Patient was advised to follow up with your PCP in 2-3 days for repeat evaluation. Differential diagnosis: Acute gastritis, pancreatitis, gastroenteritis, urinary tract infection There are no social concerns with this patient. Prescription drug management Prescriptions will include: Zofran, Pepcid, Macrobid Medical management and examination interpretation discussions were had by me with other qualified healthcare professionals as indicated for the patient's care. ED Course Orders Procedure Category Date Status Time Cbc With Differential LAB 03/16/24 Complete 10: Basic Metabolic Panel LAB 03/16/24 Complete 10: Hcg,Quantitative LAB 03/16/24 Complete 10: Hepatic Function Panel LAB 03/16/24 Complete 10:26 Lactic Acid LAB 03/16/24 Complete 10: Lipase LAB 03/16/24 Complete 10: Procalcitonin LAB 03/16/24 Complete 10:26 Pt And Ptt LAB 03/16/24 Complete 10: Urinalysis LAB 03/16/24 Complete W/Microscopic 10: ,Urine Test LAB 03/16/24 Complete 10:26 Famotidine 20mg Vial PHA 03/16/24 Complete (Pepcid 20mg Vial) 10:30 Ondansetron 4mg Inj PHA 03/16/24 Complete (Zofran 4mg Inj) 10:30 Culture Urine JAK 03/16/24 In Process 11:33 0.9%Nacl 1000ml (Ns PHA 03/16/24 Complete 1000ml) 13:00 Current Medications Medications (Trade) Dose Ordered Sig/Flora Route PRN Reason Start Time Stop Time Status Last Admin Dose Admin Famotidine (Pepcid 20mg Vial) 20 mg ONCE ONCE IV 03/16/24 10:30 03/16/24 10:31 DC 03/16/24 10:57 Ondansetron HCl (zoFRAN 4MG INJ) 4 mg ONCE ONCE IVP 03/16/24 10:30 03/16/24 10:31 DC 03/16/24 10:57 Sodium Chloride 1,000 ml @ 0 mls/hr ONCE ONCE IV 03/16/24 13:00 03/16/24 13:01 DC Vital Signs Date Time Temp Pulse Resp B/P (MAP) Pulse Ox O2 Delivery O2 Flow Rate FiO2 03/16/24 10:28 98.2 72 18 139/86 94 Room Air* 0 21 03/16/24 10:25 98.2 72 18 139/86 94 0 DX & DISP Disposition: Discharge Departure Impression: Primary Impression: Hyperglycemia Additional Impressions: Acute gastritis, UTI (urinary tract infection) Condition: Stable Scripts Famotidine (Pepcid) 20 Mg Tablet 20 MG PO BID for 5 Days, #10 TAB Prov: YOBANI DIOP 03/16/24 Ondansetron (Ondansetron Odt) 4 Mg Tab.rapdis 4 MG PO BID for 7 Days, #14 TAB Prov: YOBANI DIOP 03/16/24 Nitrofurantoin/Nitrofuran Mac (Macrobid) 100 Mg Cap 100 MG PO BID for 5 Days, #10 CAP Prov: YOBANI DIOP 03/16/24 Referrals: BEHZAD RIOJAS MD (PCP) Time of Disposition: 13:16 I have reviewed the case, and I agree with, Diagnosis and Plan I performed the substantive portion of the visit. I have reviewed and personally made and approve the management plan that is documented in the note by myself or the PETRONA. I acknowledge for responsibility for the patient's management plan. YOBANI DIOP Mar 16, 2024 13:21
[2024-03-16] MEDS: 0.9%NACL 1000ML 1,000 ML IV ONE (13:26)
[2024-03-16 14:22] VITALS: BP 118/75; PULSE 75; RESP 18; TEMP 98.1; O2SAT 97
[2024-03-17] MEDS ORDERED: METF-527 PO (23:21)
[2024-03-17] MEDS ORDERED: METO5TAB2 PO (23:21)
[2024-03-17] MEDS ORDERED: FAMO20TA8 PO (23:21)
== END 2024-03-16 14:25 | disposition home or self-care (01) ==
LOC: EDH 10:23
DX: K29.00 Acute gastritis without bleeding (principal); E11.65 Type 2 diabetes mellitus with hyperglycemia; N39.0 Urinary tract infection, site not specified; R10.2 Pelvic and perineal pain; Z79.899 Other long term (current) drug therapy; Z88.0 Allergy status to penicillin
CPT/HCPCS: 99284; 96374; 96361; 96375; 80076; 80048; 84702; 83690; 85025; 85610; 85730; 87086; 83605; 81001; 81025; 36415; 96376; 84145; J3490; J7030; J2405 ×2

== ENCOUNTER 2024-03-17 17:04 | Inpatient (IN) | payer BC ==
[~2024-03-17] VITALS: Ht 147.3 cm; Wt 46.5 kg
[2024-03-17 11:14] VITALS: BP 144/88; PULSE 91; RESP 18; TEMP 98.3
[~2024-03-17 17:04] MED LIST changes: +FAMO-136 PO
[2024-03-17 17:40] LABS: APPEARANCE,URINE CLEAR (CLEAR); BILIRUBIN,URINE NEGATIVE (NEGATIVE); COLOR,URINE YELLOW (YELLOW); GLUCOSE, URINE (UA) >=1000 mg/dL (NEGATIVE); KETONES,URINE 150 mg/dL (NEGATIVE); LEUKOCYTE ESTERASE ,URINE 25 Leu/uL (NEGATIVE); NITRATE,URINE NEGATIVE (NEGATIVE); OCCULT BLOOD,URINE SMALL (NEGATIVE); PROTEIN,URINE 200 mg/dL (NEGATIVE); UROBILINOGEN,URINE 0.2 mg/dL (0.2-1.0)
[2024-03-17 17:43] LABS: ADD UA MICROSCOPIC YES
[2024-03-17 17:44] LABS: BACTERIA,URINE RARE /HPF (None Seen); MUCUS,URINE RARE LPF (None Seen); SQUAMOUS EPITHELIAL CELL,UR RARE /HPF (0-2); YEAST,URINE BUDDING RARE /HPF (None Seen)
[2024-03-17 17:45] LABS: HCG,QUALITATIVE URINE NEGATIVE (NEGATIVE)
[2024-03-17 17:48] LABS: AMPHET/METH SCREEN,URINE NEGATIVE (NEGATIVE); BARBITURATE SCREEN, URINE NEGATIVE (NEGATIVE); BENZODIAZEPINES SCREEN,URINE NEGATIVE (NEGATIVE); CANNABINOID SCREEN,URINE POSITIVE (NEGATIVE); COCAINE SCREEN,URINE NEGATIVE (NEGATIVE); OPIATE SCREEN,URINE NEGATIVE (NEGATIVE); PHENCYCLIDINE SCREEN,URINE NEGATIVE (NEGATIVE)
[2024-03-17] MEDS: ondanSETRON 4MG INJ IVP ONE ×2 (17:53→20:30)
[2024-03-17] MEDS: PANTOPrazole 40 MG/VIAL IVP ONE (17:53)
[2024-03-17] MEDS: 0.9%NACL 1000ML 1,000 ML IV ONE (17:53)
[2024-03-17 17:54] LABS: BASOPHILS # (AUTO) 0.07 K/uL (0.00-0.20); BASOPHILS % (AUTO) 0.6 % (0.0-5.0); EOSINOPHILS # (AUTO) 0.03 K/uL (0.00-0.70); EOSINOPHILS % (AUTO) 0.3 % (0.0-8.0); HEMATOCRIT 38.6 % (36-48); IMMATURE GRANULOCYTE ABSOLUTE 0.04 K/uL (0-1); LYMPHOCYTES # (AUTO) 2.4 K/uL (1.0-4.8); MEAN CORPUSCULAR HEMOGLOBIN 27.2 pg (27.0-33.0); MEAN CORPUSCULAR HGB CONC 33.4 g/dL (32.0-36.0); MEAN CORPUSCULAR VOLUME 81.4 fL (79-99); MONOCYTES # (AUTO) 0.8 K/uL (0.1-1.0); NEUTROPHILS # (AUTO) 7.9 K/uL (1.8-7.7); NEUTROPHILS % (AUTO) 70.7 % (40.0-77.0); PLATELET COUNT (AUTO) 257 K/uL (130-400); RED BLOOD CELL COUNT(AUTO) 4.74 MIL/uL (4.00-5.50); RED CELL DISTRIBUTION WIDTH 12.8 % (11.0-15.5); WHITE BLOOD COUNT (AUTO) 11.2 K/uL (4.8-10.8)
[2024-03-17 18:11] LABS: ALBUMIN 3.3 g/dL (3.5-5.0); BILIRUBIN,TOTAL 1.4 mg/dL (0.2-1.0); CREATININE 0.9 mg/dL (0.5-1.0); MAGNESIUM 1.8 mg/dL (1.80-2.40); TOTAL PROTEIN, SERUM 7.9 g/dL (6.0-8.3)
[2024-03-17] MEDS: PoTASSium BIcarbonate/CIT AC 25 MEQ TABLET.EFF PO ONE (18:33)
[2024-03-17] MEDS: PoTASSium chloRIDE 10MEQ/100ML 100 ML IV ONE (18:34)
[2024-03-17 19:41] LABS: ABG OXYGEN SATURATION 60.9 % (94.0-98.0); HCO3,VENOUS BLOOD GAS 20.4 (22.0-29.0); PCO2,VENOUS BLOOD GAS 35 (38-54); PH,VENOUS BLOOD GAS 7.384 (7.320-7.430); PO2,VENOUS BLOOD GAS 30.7 mmHg (23.0-48.0); VENT MODE, BG RA,21 (ROOM AIR)
[2024-03-17] MEDS: hydroMORPHone 1 MG INJ IVP ONE (21:49)
[2024-03-17] MEDS: hydroMORPHone 1 MG INJ ONE (21:51)
[2024-03-17] MEDS ORDERED: GLUCAGON 1MG KIT 1 MG ML IM PRN (22:00)
[2024-03-17] MEDS: INSULIN humuLIN R 100 UNIT/ML 3ML SQ SCH (22:00)
[2024-03-17] MEDS ORDERED: DEXTROSE 50%-WATER 50 ML DISP.SYRIN IV PRN (22:00)
[2024-03-17] MEDS: 0.9%NACL 1000ML 1,000 ML IV SCH (22:20)
[2024-03-17] MEDS: cefTRIAXone 1G VIAL IV SCH (22:20)
[2024-03-17 23:14] VITALS: BP 144/88; PULSE 91; RESP 18; TEMP 98.3
[2024-03-17] MEDS ORDERED: METO5TAB2 PO (23:21)
[2024-03-17] MEDS ORDERED: FAMO20TA8 PO (23:21)
[2024-03-17] MEDS ORDERED: METF-527 PO (23:21)
[2024-03-17 23:37] VITALS: O2SAT 99
[2024-03-18] VITALS (7 sets, daily range): BP systolic 107–143; BP diastolic 71–93; PULSE 96–111; RESP 17–20; TEMP 98.1–98.5; O2SAT 99
[2024-03-18 05:48] LABS: BASOPHILS # (AUTO) 0.07 K/uL (0.00-0.20); BASOPHILS % (AUTO) 0.8 % (0.0-5.0); EOSINOPHILS % (AUTO) 1.1 % (0.0-8.0); HEMATOCRIT 32.5 % (36-48); IMMATURE GRANULOCYTE ABSOLUTE 0.04 K/uL (0-1); LYMPHOCYTES % (AUTO) 32.8 % (21.0-51.0); MEAN CORPUSCULAR HGB CONC 33.2 g/dL (32.0-36.0); MEAN CORPUSCULAR VOLUME 84.2 fL (79-99); MONOCYTES # (AUTO) 0.8 K/uL (0.1-1.0); MONOCYTES % (AUTO) 8.6 % (3.0-13.0); NEUTROPHILS # (AUTO) 5.2 K/uL (1.8-7.7); NEUTROPHILS % (AUTO) 56.3 % (40.0-77.0); PLATELET COUNT (AUTO) 185 K/uL (130-400); RED BLOOD CELL COUNT(AUTO) 3.86 MIL/uL (4.00-5.50); RED CELL DISTRIBUTION WIDTH 12.7 % (11.0-15.5); WHITE BLOOD COUNT (AUTO) 9.3 K/uL (4.8-10.8)
[2024-03-18 06:14] LABS: HEMOGLOBIN A1C 13.9 % (4.0-6.0)
[2024-03-18 06:18] LABS: ALBUMIN 2.5 g/dL (3.5-5.0); BILIRUBIN,TOTAL 0.7 mg/dL (0.2-1.0); CREATININE 0.6 mg/dL (0.5-1.0); MAGNESIUM 1.6 mg/dL (1.80-2.40)
[2024-03-18 06:26] LABS: POTASSIUM 2.9 mmol/L (3.5-5.1)
[2024-03-18] MEDS: MAGNESIUM 2GM PREMIX 50ML 50 ML IV PRN (06:31)
[2024-03-18] MEDS: FAMOTIDINE 20MG VIAL IV SCH (09:16)
[2024-03-18] MEDS ORDERED: PoTASSium chloRIDE 20MEQ/100ML 100 ML IV PRN (10:30)
[2024-03-18] MEDS ORDERED: PoTASSium chl 10% ELIXIR 20MEQ 20 MEQ/15 ML UDCUP PO PRN (10:30)
[2024-03-18] MEDS: PoTASSium chloRIDE 20MEQ ER 20 MEQ ERTAB PO PRN (11:36)
[2024-03-18] MEDS: ondanSETRON 4MG INJ IV PRN (11:36)
[2024-03-18] MEDS: PoTASSium chloRIDE 20MEQ/100ML 100 ML IV PRN (12:15)
[2024-03-18] MEDS: morPHINE 2 MG SYG IVP PRN (15:38)
[2024-03-18] MEDS: ketOROlac 15MG/ML VIAL (15MG/ML) IV PRN (17:01)
[2024-03-19] VITALS: BP 119/70; PULSE 100; RESP 18; TEMP 99
[2024-03-19 04:00] VITALS: BP 105/63; PULSE 105; RESP 18; TEMP 98.3
[2024-03-19] MEDS: LACTULOSE 20 GM/30 ML UDCUP PO PRN (04:08)
[2024-03-19 06:29] LABS: MAGNESIUM 1.8 mg/dL (1.80-2.40)
[2024-03-19 07:45] VITALS: BP 134/74; PULSE 101; RESP 16; TEMP 99
[2024-03-19 08:00] VITALS: O2SAT 99
[2024-03-19 11:20] VITALS: BP 132/85; PULSE 115; RESP 16; TEMP 98.5
== END 2024-03-19 11:15 | disposition home or self-care (01) | DRG 74 ==
LOC: EDH 17:04 → EDHIP 21:56 → 3BH 22:49
PROVIDERS: ADMIT Internal Medicine; ATTEND Internal Medicine
DX: E11.43 Type 2 diabetes mellitus with diabetic autonomic (poly)neuropathy (principal); E46 Unspecified protein-calorie malnutrition; E87.6 Hypokalemia; K31.84 Gastroparesis; E11.65 Type 2 diabetes mellitus with hyperglycemia; E86.0 Dehydration; F12.90 Cannabis use, unspecified, uncomplicated; E87.8 Other disorders of electrolyte and fluid balance, not elsewhere classified; R11.2 Nausea with vomiting, unspecified; I10 Essential (primary) hypertension; Z79.84 Long term (current) use of oral hypoglycemic drugs; Z91.199 Patient's noncompliance with other medical treatment and regimen due to unspecified reason; Z82.49 Family history of ischemic heart disease and other diseases of the circulatory system; Z68.21 Body mass index [BMI] 21.0-21.9, adult; Z88.0 Allergy status to penicillin
CPT/HCPCS: 36415; 36600; 71045; 80053; 80305; 81001; 81025; 82010; 82435; 82803; 82947; 82948; 83036; 83605; 83690; 83735; 84132; 84295; 84484; 85025; 87086; 93005; 96374; 96375; 99291; G0378; J0696; J1171; J1815; J1885; J2270; J2405; J2470; J3475; J3480; J3490; J7030

== ENCOUNTER 2025-01-23 06:08 | Emergency (ER) | payer BC ==
[~2025-01-23] VITALS: Ht 142.2 cm; Wt 39.9 kg
[~2025-01-23 06:08] MED LIST changes: -ESOM40CA PO; -FAMO-136 PO; +FAMO20TA8 PO; -IBUP-2070 PO; -MACR100 PO; +METF-527 PO; -METO10TA41 PO; -METO5 PO; +METO5TAB2 PO; -ONDA-243 PO; -OXYC-38 PO
--- NOTE | 2025-01-23 06:13 | ERN ---
General Chief Complaint: Back Pain-No Injury Stated Complaint: C/O BACK PAIN, NECK PAIN,MUSCLE PAINS X 1 WK Time Seen by MD: 06:12 History of Present Illness Initial Comments 34-year-old female with back pain for about a week and then in the last two days left-sided neck pain left arm pain. Patient has been unable to sleep because of the pain. Yesterday patient also had nausea and vomiting. No fevers or chills no change in urination or defecation. Past medical history includes diabetes no meds. Allergies: Coded Allergies: Penicillins (Unverified Allergy, Unknown, 09/11/21) Home Meds Reported Medications Metformin HCl (Metformin HCl ER) 1,000 Mg Tab.er.24, 1000 MG PO BIDMEALS 03/17/24 Metoclopramide HCl (Metoclopramide HCl) 5 Mg Tablet, 1 TAB PO QID PRN for NAUSEA 03/17/24 Famotidine (Famotidine) 20 Mg Tablet, 1 TAB PO BID 03/17/24 Past Medical History Past Medical History: Diabetes-Type II Medical History Other: NOT TAKING ANY MEDS FOR DIABETES, GALLSTONES Past Surgical History: None Family History Family History: Negative Social History Social History: Drugs, Lives with family, Other Female( History) : 2 Para: 2 Aborts: 0 Constitutional: (-) chills, (-) diaphoresis, (-) fever, (-) malaise, (-) weakness, (-) other documentation EENTM: (-) eye pain, (-) blurred vision, (-) tearing, (-) double vision, (-) ear pain, (-) ear discharge, (-) nose pain, (-) nose congestion, (-) throat pain, (-) Throat swelling, (-) mouth pain, (-) tooth pain, (-) mouth swelling, (-) other documentation Respiratory: (-) cough, (-) orthopnea, (-) short of breath, (-) stridor, (-) wheezing, (-) other documentation Cardiovascular: (-) chest pain, (-) edema, (-) palpitations, (-) syncope, (-) dyspnea on exertion, (-) other documentation Gastrointestinal/Abdominal: (+) nausea, (+) vomiting Genitourinary: (-) vaginal discharge, (-) vaginal bleeding, (-) dysuria, (-) frequency, (-) hematuria, (-) pain, (-) other documentation Musculoskeletal: (+) Neck pain, (+) back pain Skin: (-) laceration, (-) contusion, (-) abrasion, (-) abscess, (-) rash, (-) change in color, (-) change in hair, (-) change in nails, (-) diaphoresis, (-) dryness, (-) other documentation Neuro: (-) altered mental status, (-) headache, (-) syncope, (-) paralysis, (-) numbness, (-) seizure, (-) pre-existing deficit, (-) tremors, (-) weakness, (-) dizziness, (-) slurred speech, (-) vertigo, (-) other documentation Physical Exam General Appearance: (+) no apparent distress Orientation: (+) alert, (+) oriented x 3 Head/Face Trauma: No Eye: bilateral eye normal inspection, bilateral eye PERRL, bilateral eye EOMI Ear, Nose, Throat: (+) hearing grossly normal, (+) normal ENT inspection, (+) moist mucous membraine Neck: (+) normal inspection, (+) supple, (+) full range of motion Respiratory: (+) chest non-tender, (+) lungs clear, (+) well ventilated Heart: (+) no gallop, (+) tachycardia Vascular: (+) no edema Vascular Comment Pulses thready Gastrointestinal: (+) soft, (+) non-tender, (+) bowel sound present Extremities: (+) normal range of motion, (+) non-tender, (+) normal inspection Results Laboratory and Microbiology Lab and Micro Result Laboratory Tests Test 01/23/25 06:22 01/23/25 06:37 Urine Color YELLOW (YELLOW) Urine Appearance CLOUDY (CLEAR) H Urine pH 5.5 (5.0-8.0) Urine Specific [place] 1.016 (1.001-1.031) Urine Protein 50 mg/dL (NEGATIVE) H Urine Glucose (UA) >=1000 mg/dL (NEGATIVE) H Urine Ketones 60 mg/dL (NEGATIVE) H Urine Occult Blood +- (TRACE) (NEGATIVE) H Urine Nitrate NEGATIVE (NEGATIVE) Urine Bilirubin NEGATIVE mg/dL (NEGATIVE) Urine Urobilinogen 0.2 mg/dL (0.2-1.0) Urine Leukocyte Esterase 75 [place]/uL (NEGATIVE) H Urine RBC 2-5 /HPF (0-1) H Urine WBC 11-25 /HPF (0-1) H Urine WBC Clumps (Auto) FEW /HPF (0-1) Urine Squamous Epithelial Cells MANY /HPF (0-2) Urine Bacteria RARE /HPF (None Seen) Urine Other Casts 6 /LPF (None Seen) Urine HCG, Qualitative NEGATIVE (NEGATIVE) White Blood Count 11.9 K/uL (4.8-10.8) H Red Blood Count 4.45 MIL/uL (4.00-5.50) Hemoglobin 12.4 g/dL (12.0-16.0) Hematocrit 36.6 % (36-48) Mean Corpuscular Volume 82.2 fL (79-99) Mean Corpuscular Hemoglobin 27.9 pg (27.0-33.0) Mean Corpuscular Hemoglobin Concent 33.9 g/dL (32.0-36.0) Red Cell Distribution Width 13.0 % (11.0-15.5) Platelet Count 244 K/uL (130-400) Mean Platelet Volume 10.3 fL (7.5-10.5) Immature Granulocyte % (Auto) 0.4 % (0-1) Neutrophils (%) (Auto) 71.8 % (40.0-77.0) Lymphocytes (%) (Auto) 21.2 % (21.0-51.0) Monocytes (%) (Auto) 4.9 % (3.0-13.0) Eosinophils (%) (Auto) 1.0 % (0.0-8.0) Basophils (%) (Auto) 0.7 % (0.0-5.0) Neutrophils # (Auto) 8.5 K/uL (1.8-7.7) H Lymphocytes # (Auto) 2.5 K/uL (1.0-4.8) Monocytes # (Auto) 0.6 K/uL (0.1-1.0) Eosinophils # (Auto) 0.12 K/uL (0.00-0.70) Basophils # (Auto) 0.08 K/uL (0.00-0.20) Absolute Immature Granulocyte (auto 0.05 K/uL (0-1) Nucleated Red Blood Cells 0.0 % (0.0-0.19) Sodium Level 137 mmol/L (136-145) Potassium Level 4.4 mmol/L (3.5-5.1) Chloride Level 101 mmol/L (101-111) Carbon Dioxide Level 24 mmol/L (21-32) Blood Urea Nitrogen 8 mg/dL (7-18) Creatinine 0.7 mg/dL (0.5-1.0) Glomerular Filtration Rate Calc 116 mL/min (>90) Random Glucose 222 mg/dL (70-105) H Total Calcium 9.1 mg/dL (8.5-10.1) Total Bilirubin 1.8 mg/dL (0.2-1.0) H Aspartate Amino Transf (AST/SGOT) 29 U/L (10-37) Alanine Aminotransferase (ALT/SGPT) 27 U/L (12-78) Alkaline Phosphatase 106 U/L (50-136) Troponin I High Sensitivity < 4 ng/L (4-50) L B-Type Natriuretic Peptide 10 pg/mL (0-100) Total Protein 7.6 g/dL (6.0-8.3) Albumin 3.4 g/dL (3.5-5.0) L MDM MDM: Differential diagnosis: Dehydration, muscle spasm, UTI, electrolyte abnormalities, myositis Rationale: Tests considered and ordered secondary to shared decision making include: Previous outside records reviewed: Old ER visits. Risk of complication and/or morbidity or mortality of patient management: None Medications-Per medication reconciliation Need for hospitalization: Patient does meet criteria for hospitalization. Need for emergency major/minor surgery: No There are no social concerns with this patient. Prescription drug management Prescriptions will include symptomatic care Patient's prior external medical records from other ER visits were reviewed by me as indicated. Prior testing and results from previous visits were reviewed. Prior tests were taken into account with medical decision making and resource utilization, independent historian/historians were used to obtain complete medical history. I independently interpreted the test that were performed, results were reviewed by me and considered findings on radiology if ordered. ED Course Orders Procedure Category Date Status Time Urinalysis Profile LAB 01/23/25 Complete 06:17 ,Urine Test LAB 01/23/25 Complete 06:17 Cbc With Differential LAB 01/23/25 Complete 06:25 Comprehensive LAB 01/23/25 Complete Metabolic Panel 06:25 Troponin I High LAB 01/23/25 Complete Sensitivity 06:25 B-Type Natriuretic LAB 01/23/25 Complete Peptide 06:25 Orphenadrine Citrate PHA 01/23/25 Complete (Norflex) 06:30 Ketorolac PHA 01/23/25 Complete Tromethamine 30mg/Ml 06:30 Lactated Ringers PHA 01/23/25 Complete 1000ml (Lactated 06:25 Triamcinolone Acet PHA 01/23/25 Complete 40mg/Ml 1ml (Kenalog 06:30 12 Lead Ekg Tracing- EKG 01/23/25 Complete Technical 06:25 Culture Urine JAK 01/23/25 In Process 06:54 Ondansetron 4mg Inj PHA 01/23/25 Complete (Zofran 4mg Inj) 08:00 Chest 1vw RAD 01/23/25 Resulted 07:49 Neck Soft Tissue RAD 01/23/25 Resulted 07:49 Current Medications Medications (Trade) Dose Ordered Sig/Flora Route PRN Reason Start Time Stop Time Status Last Admin Dose Admin Ketorolac Tromethamine (toRADol) 30 mg ONCE ONCE IVP 01/23/25 06:30 01/23/25 06:31 DC 01/23/25 07:01 Lactated Ringer's (Lactated Ringers 1000ml) 1,000 ml BOLUS STAT IV 01/23/25 06:25 01/23/25 06:32 DC 01/23/25 06:48 Ondansetron HCl (zoFRAN 4MG INJ) 4 mg ONCE ONCE IVP 01/23/25 08:00 01/23/25 08:02 DC 01/23/25 07:48 Orphenadrine Citrate (Norflex) 60 mg ONCE ONCE IVP 01/23/25 06:30 01/23/25 06:31 DC 01/23/25 07:01 Triamcinolone Acetonide (Kenalog 40) 40 mg ONCE ONCE IM 01/23/25 06:30 01/23/25 06:31 DC 01/23/25 07:33 Vital Signs Date Time Temp Pulse Resp B/P (MAP) Pulse Ox O2 Delivery O2 Flow Rate FiO2 01/23/25 10:13 98.1 102 14 147/91 100 Room Air* 0 21 01/23/25 08:30 98.1 113 15 152/90 100 Room Air* 0 01/23/25 07:29 98.1 114 22 133/81 98 Room Air* 0 01/23/25 07:04 98.6 116 20 133/81 97 Room Air* 0 01/23/25 06:28 98.4 102 18 132/88 99 Room Air* 0 01/23/25 06:10 98.1 105 20 99/69 97 Room Air DX & DISP Disposition: Discharge Departure Impression: Primary Impression: UTI (urinary tract infection) Additional Impression: Nausea and vomiting Condition: Stable Scripts Ondansetron (Ondansetron Odt) 4 Mg Tab.rapdis 4 MG PO BID for vomiting for 5 Days, #10 TAB Prov: RENETTA MUNOZ MD 01/23/25 Nitrofurantoin Monohyd/M-Cryst (Macrobid 100 mg Capsule) 100 Mg Capsule 1 CAP PO BID for 7 Days, #14 CAP 0 Refills Prov: RENETTA MUNOZ MD 01/23/25 Referrals: ANA CARNEY (PCP) LAURA GOMEZ MD Jan 23, 2025 06:13 RENETTA MUNOZ MD Jan 23, 2025 10:26
[2025-01-23 06:43] LABS: IMMATURE GRANULOCYTE ABSOLUTE 0.05 K/uL (0-1); NUCLEATED RED BLOOD CELLS 0.0 % (0.0-0.19); PLATELET COUNT (AUTO) 244 K/uL (130-400); RED BLOOD CELL COUNT(AUTO) 4.45 MIL/uL (4.00-5.50); RED CELL DISTRIBUTION WIDTH 13.0 % (11.0-15.5); WHITE BLOOD COUNT (AUTO) 11.9 K/uL (4.8-10.8)
--- NOTE | 2025-01-23 06:47 | EKG ---
[facility] Test Date: 2025-01-23 Test Time: 06:39:55 Pat Name: RILEY BENTON Department: [facility] Room: Gender: F Senior Director Marketing: [id number] : 1990 Requested By: LAURA GOMEZ Order Number: [id number] Reading MD: Carlos Wilkins Measurements Intervals [place] Rate: 102 P: 66 MN: 137 QRS: 56 QRSD: 67 T: 49 QT: 352 QTc: 459 Interpretive Statements Sinus tachycardia Compared to ECG 03/17/2024 17:34:47 No significant changes Electronically Signed On 01-23-2025 16:05:45 CDT by Carlos Wilkins Please click the below link to view image of tracing.
[2025-01-23] MEDS: LACTATED RINGERS 1000ML IV STA (06:48)
[2025-01-23 06:52] LABS: APPEARANCE,URINE CLOUDY (CLEAR); GLUCOSE, URINE (UA) >=1000 mg/dL (NEGATIVE); LEUKOCYTE ESTERASE ,URINE 75 Leu/uL (NEGATIVE); NITRATE,URINE NEGATIVE (NEGATIVE); OCCULT BLOOD,URINE +- (TRACE) (NEGATIVE)
[2025-01-23 06:54] LABS: ADD UA MICROSCOPIC YES; HCG,QUALITATIVE URINE NEGATIVE (NEGATIVE)
[2025-01-23 06:55] LABS: OTHER CASTS, URINE 6 /LPF (None Seen); SQUAMOUS EPITHELIAL CELL,UR MANY /HPF (0-2); WBC CLUMP FEW /HPF (0-1)
[2025-01-23 07:00] LABS: ASPARTATE AMINOTRANSFERASE 29.0 U/L (10-37); CREATININE 0.7 mg/dL (0.5-1.0); GLOMERULAR FILTR. RATE CALC 116.0 mL/min (>90); GLUCOSE,RANDOM 222.0 mg/dL (70-105); SODIUM SERUM 137.0 mmol/L (136-145); TOTAL PROTEIN, SERUM 7.6 g/dL (6.0-8.3); UREA NITROGEN, BLOOD 8.0 mg/dL (7-18)
[2025-01-23] MEDS: ORPHENADRINE 60MG/2ML IVP ONE (07:01)
[2025-01-23] MEDS: TRIAMCINOLONE ACETONIDE 40 MG/ML 1ML VIAL IM ONE (07:33)
--- NOTE | 2025-01-23 09:28 | HMCIMG ---
EXAM: CR Chest, 1 View. CLINICAL HISTORY: back pain COMPARISON: None provided. FINDINGS: LUNGS: There is no mass, infiltrate, or acute pulmonary abnormality. PLEURAL SPACES: No evidence of pleural effusion or pneumothorax. MEDIASTINUM: The cardiomediastinal silhouette is within normal limits. BONES: No aggressive appearing osseous lesion seen. IMPRESSION: No acute cardiopulmonary pathology is evident. /[place]
--- NOTE | 2025-01-23 09:29 | HMCIMG ---
EXAM: CR Soft Tissue Neck, 3 View. CLINICAL HISTORY: back pain COMPARISON: None provided. FINDINGS: SOFT TISSUES: Unremarkable. No retropharyngeal soft tissue swelling or gas. EPIGLOTTIS: No epiglottic thickening. BONES: No acute osseous abnormality. IMPRESSION: No acute pathology evident on soft tissue plain films of the neck. /[place]
[2025-01-23] MEDS ORDERED: NITR100C4 PO (10:26)
[2025-01-23] MEDS ORDERED: ONDA-243 PO (10:26)
[2025-01-23 10:49] VITALS: BP 142/95; PULSE 101; RESP 17; TEMP 98.3; O2SAT 99
--- NOTE | 2025-01-23 10:49 | NUR ---
DC PATIENT WAS DC'D BY DR MUNOZ TODAY, I DC'D PATIENTS IV WITH CATH STILL INTACT AND APPLIED 2X2 GAUZE WITH COBAN I EXPLAINED TO PATIENT NEW PRESCRIPTIONS AND HOW TO TAKE THEM WELL INFO BASED ON DIAGNOSIS, I ANSWERED ANY FURTHER QUESTIONS FROM PATIENT, PATIENT AMBULATED OUT OF ED, NO COMPLICATIONS
== END 2025-01-23 10:48 | disposition home or self-care (01) ==
LOC: EDH 06:08
DX: N39.0 Urinary tract infection, site not specified (principal); R11.2 Nausea with vomiting, unspecified; E11.9 Type 2 diabetes mellitus without complications; Z88.0 Allergy status to penicillin
CPT/HCPCS: 99284; 96374; 96361; 96375; 71045; 84484; 80053; 83880; 85025; 87086; 81001; 81025; 36415; 70360; 93005; 96372; J1885; J2405; J3301; J2360